=== PATIENT | male | born 1985 | race Asian ===

== ENCOUNTER 2017-12-11 13:44 | Emergency (ER) | payer SELFPAY ==
[~2017-12-11] VITALS: Ht 167.6 cm; Wt 75.5 kg
[2017-12-11 13:51] VITALS: BP 123/80
== END 2017-12-11 15:01 | disposition home or self-care (01) ==
LOC: ED 14:55
DX: S01.01XD Laceration without foreign body of scalp, subsequent encounter (principal)
CPT/HCPCS: 99281